=== PATIENT | male | born 1940 | race Caucasian/White ===

== ENCOUNTER → 2019-01-31 | Outpatient (CLI) | payer MEDICARE ==
[~2019-01-31] MED LIST: ASPI-555 PO; CARB-39 PO; IRON1CAP3 PO; MELO-108 PO; SIMV40TA5 PO
== END | disposition home or self-care (01) ==
LOC: RAH 14:41
PROVIDERS: ATTEND Physical Medicine & Rehabilitation
DX: M51.36 Other intervertebral disc degeneration, lumbar region (principal); M47.816 Spondylosis without myelopathy or radiculopathy, lumbar region; M48.061 Spinal stenosis, lumbar region without neurogenic claudication
CPT/HCPCS: 72131

== ENCOUNTER 2019-10-07 07:07 | Day surgery (SDC) | payer MEDICARE ==
[2019-10-06 09:55] LABS: BASOPHILS % (AUTO) 0.8 % (0.0-5.0); EOSINOPHILS % (AUTO) 2.9 % (0.0-8.0); HEMATOCRIT 40.7 % (42-54); LYMPHOCYTES % (AUTO) 22.2 % (21.0-51.0); MEAN CORPUSCULAR HEMOGLOBIN 28.2 pg (27.0-33.0); MEAN CORPUSCULAR HGB CONC 32.9 g/dL (32.0-36.0); MEAN CORPUSCULAR VOLUME 85.7 fL (79-99); MONOCYTES % (AUTO) 10.3 % (3.0-13.0); NEUTROPHILS % (AUTO) 63.4 % (40.0-77.0); PLATELET COUNT (AUTO) 321 K/uL (130-400); RED BLOOD CELL COUNT(AUTO) 4.75 MIL/uL (4.50-6.20); RED CELL DISTRIBUTION WIDTH 14.6 % (11.0-15.5); WHITE BLOOD COUNT (AUTO) 4.9 K/uL (4.8-10.8)
[2019-10-06 10:13] LABS: CREATININE 0.8 mg/dL (0.5-1.5); POTASSIUM 4.6 mmol/L (3.5-5.1)
[2019-10-06 17:06] VITALS: BP 153/85
[2019-10-07] VITALS (15 sets, daily range): BP systolic 122–170; BP diastolic 78–85
[~2019-10-07] VITALS: Ht 175.3 cm; Wt 86.6 kg
[~2019-10-07 07:07] MED LIST changes: -ASPI-555 PO; -CARB-39 PO; +CEFAZOLIN SODIUM 1 GM VIAL ONE; -IRON1CAP3 PO; +LACTATED RINGERS 1000ML 1,000 ML IV ONE; +LIDOCAINE HCL-MPF 0.5% 50ML VIAL IJ ONE; -MELO-108 PO; +SIMV-46 PO; -SIMV40TA5 PO
[2019-10-07] MEDS ORDERED: MIDAZOLAM HCL 1 MG/ML 2ML VIAL ONE (07:50)
[2019-10-07] MEDS ORDERED: FENTANYL CITRATE PF 50 MCG/1 ML 2ML VIAL ONE (07:52)
[2019-10-08] MEDS ORDERED: CEFAZOLIN SODIUM 1 GM VIAL IVP SCH (05:00)
== END 2019-10-07 10:30 | disposition home or self-care (01) ==
LOC: DAH 07:07
PROVIDERS: ATTEND Neurological Surgery
DX: G56.01 Carpal tunnel syndrome, right upper limb (principal); Z79.899 Other long term (current) drug therapy
CPT/HCPCS: 36415; 64721; 80048; 85025; 93005; A4215 ×2; A4216; A4221; A4222; A4223 ×2; A4663; A6260; J0690; J2250; J3010; J3490; J7030; J7120